=== PATIENT | male | born 1965 | race Caucasian/White ===

== ENCOUNTER 2018-10-06 14:48 | Inpatient (IN) | payer MEDICARE ==
[2018-10-06] VITALS (29 sets, daily range): BP systolic 52–102; BP diastolic 20–82; BMI 34.2
[~2018-10-06] VITALS: Ht 152.4 cm; Wt 74.1 kg
--- NOTE | 2018-10-06 15:00 | NUR ---
DOPAMINE CONTINUES FROM TRANSFER, TITRATE, CURRENT RATE 10 MCG/KG/MIN
[2018-10-06] MEDS ORDERED: KEPPRA500 MG PO (15:02)
[2018-10-06] MEDS ORDERED: ZOLOFT100 MG PO (15:02)
[2018-10-06 16:22] LABS: CKMB 1.7 U/L (0.0-3.6); CREATINE KINASE 61 UL (21-232); PRO BNP 464 pg/mL (0-125); THYROID STIMULATING HORMONE 1.31 uIU/mL (0.36-3.74); TROPONIN-I 0.022 ng/mL (0.000-0.060)
[2018-10-06 16:57] LABS: BASOPHILS 0.7 % (0-2); EOSINOPHILS 0.7 % (0-7); HEMATOCRIT 44.1 % (42.0-54.0); HEMOGLOBIN 15.1 g/dL (13.5-17.5); IMMATURE GRANULOCYTES 0.3 % (0-5); LYMPHOCYTES 14.8 % (15-50); MCH 33.9 pg (26.0-34.0); MCHC 34.2 g/dL (31.0-37.0); MCV 98.9 fL (80.0-100.0); MEAN PLATELET VOLUME 9.4 fL (7.4-10.4); MONOCYTES 7.4 % (2-11); NEUTROPHILS 76.1 % (40-80); PLATELET COUNT 233 10x3/uL (130-400); RBC 4.46 10x6/uL (4.20-6.10); RDW 13.9 % (11.5-14.5); WBC 7.2 10x3/uL (4.8-10.8)
[2018-10-06 17:14] LABS: ALKALINE PHOSPHATASE 67 U/L (46-116); ALT (SGPT) 68 U/L (10-68); BILIRUBIN - TOTAL 0.59 mg/dL (0.2-1.3); CALC OSMOLALITY 284 mosm/kg (275-300); CARBON DIOXIDE 26.5 mmol/L (21.0-32.0); CHLORIDE - SERUM 108 mmol/L (98-107); GLUCOSE 106 mg/dL (74-106); POTASSIUM - SERUM 4.1 mmol/L (3.5-5.1); PROTEIN - SERUM 6.3 g/dL (6.4-8.2); SODIUM 142 mmol/L (136-145); UREA NITROGEN 19 mg/dL (7-18); eGFR NON AFRICAN AMERICAN 84 mL/min (90-120)
--- NOTE | 2018-10-06 18:53 | NUR ---
1628: REC'D TO ROOM CV 8. TRANSFERRED TO ICU BED BY [employer]. CONNECTED TO MONITOR AND VS OBTAINED. IV R AC WITH DOPAMINE @ 3.1 MCG/KG/MIN (10CC/HR) WITH WEIGHT OF 83KG. WEIGHED WITH BEDSCALES @ 75KG. SEE ADMISSION ASSESSMENT. 1730: DOPAMINE INCREASED TO 5 MCG/KG/MIN (14.9 CC/HR). FAMILY AT BEDSIDE. RESTLESS. ATTEMPTS TO CALM UNSUCCESSFUL. FAMILY HOLDING PATIENT DOWN IN BED. 183: FAMILY REQUESTING MEDICATION TO CALM PATIENT 184: Michael RENTERIA APN NOTIFIED OF REQUEST. NEW ORDERS REC'D. 184: 1/2 NS STARTED L HAND AT 100CC/HR. ATIVAN 0.5MG GIVEN IV. 0: CALMER. FAMILY REMAINS AT BEDSIDE.
--- NOTE | 2018-10-06 19:00 | NUR ---
REPORT RECEIVED CARE ASSUMED ASSESSMENT DONE SEE FLOW SHEET. FAMILY AT BEDSIDE QUESTIONS ANSWERED TEACHING PROVIDED. NO SIGNS OF ACUTE DISTRESS. FAMILY MAKING ARRANGEMENTS TO STAY WITH PT THROUGH NIGHT.
--- NOTE | 2018-10-06 20:38 | NUR ---
CASSIE MALDONADO INFORMED OF PT STATUS ORDER RECEIVED. WILL WAIT TO GET URINALYSIS DUE TO PT STATUS.
--- NOTE | 2018-10-06 22:00 | NUR ---
NO SCDS IN PLACE. FAMILY STATES THEY UNDERSTAND THE RISK PT WILL NOT TOLERATE.
[2018-10-06 23:04] LABS: CKMB 2.1 U/L (0.0-3.6); CREATINE KINASE 105 UL (21-232); TROPONIN-I 0.023 ng/mL (0.000-0.060)
[2018-10-07] VITALS (84 sets, daily range): BP systolic 59–138; BP diastolic 25–116
--- NOTE | 2018-10-07 01:00 | NUR ---
2300 REASSESSMENT DONE SEE FLOW SHEET. SINUS EDMOND WITH PVC AND PAC NOTED. LABILE BP NOTED. UNABLE TO OBTAIN ACCURATE BP DUE TO PT MOVEMENT. WILL CONITNUT TO MONITOR. 0100 PT DISLODGED L HAND PIV. L FOREARM PIV 20G PLACED. SALINE LOCK. COMPLETE BED BATH LINEN CHANGE. PT INCONTINENT TO URINE.
--- NOTE | 2018-10-07 03:00 | NUR ---
REASSESSMENT DONE SEE FLOW SHEET VSS.
[2018-10-07 04:16] LABS: BASOPHILS 0.4 % (0-2); EOSINOPHILS 0.6 % (0-7); HEMATOCRIT 46.7 % (42.0-54.0); HEMOGLOBIN 16.5 g/dL (13.5-17.5); IMMATURE GRANULOCYTES 0.2 % (0-5); LYMPHOCYTES 12.2 % (15-50); MCH 34.4 pg (26.0-34.0); MCHC 35.3 g/dL (31.0-37.0); MCV 97.3 fL (80.0-100.0); NEUTROPHILS 77.6 % (40-80); PLATELET COUNT 238 10x3/uL (130-400); RDW 13.5 % (11.5-14.5)
[2018-10-07 04:23] LABS: WBC 11.7 10x3/uL (4.8-10.8)
[2018-10-07 04:42] LABS: ALBUMIN 3.1 g/dL (3.4-5.0); ALKALINE PHOSPHATASE 74 U/L (46-116); ALT (SGPT) 63 U/L (10-68); BILIRUBIN - TOTAL 0.76 mg/dL (0.2-1.3); CALCIUM 8.5 mg/dL (8.5-10.1); CARBON DIOXIDE 31.2 mmol/L (21.0-32.0); CHLORIDE - SERUM 107 mmol/L (98-107); CKMB 1.6 U/L (0.0-3.6); CREATINE KINASE 64 UL (21-232); GLUCOSE 137 mg/dL (74-106); MAGNESIUM - SERUM 1.8 mg/dL (1.8-2.4); PROTEIN - SERUM 6.9 g/dL (6.4-8.2); SODIUM 143 mmol/L (136-145); TROPONIN-I 0.041 ng/mL (0.000-0.060); eGFR NON AFRICAN AMERICAN 84 mL/min (90-120)
[2018-10-07 04:44] LABS: CALC OSMOLALITY 286 mosm/kg (275-300); POTASSIUM - SERUM 3.4 mmol/L (3.5-5.1); UREA NITROGEN 12 mg/dL (7-18)
--- NOTE | 2018-10-07 06:33 | NUR ---
DR BLACKWELL INFORMED OF PT STATUS AND INCONSISTANT BP. " LONG WE HAVE URINE AND MOVEMENT WE ARE OK."
--- NOTE | 2018-10-07 07:00 | NUR ---
REPORT RECEIVED FROM THE OFF GOING RN. SEE ASSESSMENT IN THE PTS FLOW SHEET. PT SITTING IN HIS BED. MOTHER AT HIS BEDSIDE. PT WILL RESPOND WITH "HI" WHENEVER SPOKEN TO BUT PT UNABLE TO ANSWER ANY QUESTIONS. SINUS BRADYCARDIA AT 40-50 BPM. PT ON 1/2NS AND DOPAMINE AT 20MCG/KG/MIN. BP STABLE. O2 AT 2L VIA NC. ASKED THE MOTHER IF THE PT WEARS HOME O2 AND SHE STATED NO. O2 REMOVED AND PT ON RA. PT 92% AND ABOVE. EXPLAINED ABOUT PPM PLACEMENT AND TEACHING ABOUT POST OP DIRECTIONS. PTS MOTHER STATED THAT SHE DOES NOT THINK HE WILL BE ABLE TO KEEP HIS ARM DOWN AND STATED THAT SHE DOES NOT WISH FOR THE PT TO HAVE A PPM. WILL NOTIFY THE [employer] ASSISTANT MANAGER ABOUT THE PTS WISHES.
--- NOTE | 2018-10-07 09:30 | NUR ---
VENTURA LARA TOOLROOM MACHINIST AT THE PTS BEDSIDE TALKING ABOUT SSS AND THE PT NEEDING A PPM. SHE ALSO EXPLAINED THE RISKS AND BENIFITS. SURGERY CONSULTED PER TOOLROOM MACHINIST. FAMILY STATS "WELL HE HAS SEVERE ATROPHY OF THE BRAIN. KEEPING HIS ARM STRAIGHT AND KEEPING HIM CALM WILL BE HARD. WHAT WOULD HAPPEN IF WE DIDNT PUT A PACEMAKER IN HIM?" VENTURA LARA MENTIONED KEEPING HIS ARM RESTRAINED UNTIL OR A CHEMICAL RESTRAINT. SHE ALSO STATED THAT THE PT COULD WITHOUT A PACEMAKER. FAMILY STATED THEY WILL MAKE A DESCISION TOMORROW. DR AGUILAR CONSULTED FOR PPM PLACEMENT.
[2018-10-07 09:58] LABS: CKMB 1.6 U/L (0.0-3.6); CREATINE KINASE 64 UL (21-232); TROPONIN-I 0.048 ng/mL (0.000-0.060)
--- NOTE | 2018-10-07 10:08 | NUR ---
PT INC OF BLADDER. PT CLEANED. FULL CHD BATH GIVEN. LINENES CHANGED WILL CONT POC.
--- NOTE | 2018-10-07 11:24 | NUR ---
YOBANY GUSTAFSON AT THE PTS BEDSIDE DOING SWALLOW EVAL.
--- NOTE | 2018-10-07 11:26 | NUR ---
MECH SOFT AND HONEY THICK FLUIDS RECOMMENDED BY YOBANY GUSTAFSON.
--- NOTE | 2018-10-07 12:59 | NUR ---
PT INC OF BLADDER. PT CLEANED AND LINENES CHANGED. PT TOLERATED WELL.
--- NOTE | 2018-10-07 14:37 | NUR ---
DR ALARCON AT THE PTS BEDSIDE SPEAKING TO THE MOTHER AND THE FATHER ABOUT THE SURGERY (POSSIBLY TOMORROW). NO QUESTIONS AT THIS TIME.
--- NOTE | 2018-10-07 15:54 | NUR ---
DR RIVERO AT THE PTS BEDSIDE.
[2018-10-07 16:36] LABS: HEMATOCRIT 46.2 % (42.0-54.0); HEMOGLOBIN 16.1 g/dL (13.5-17.5); MCHC 34.8 g/dL (31.0-37.0); MCV 97.5 fL (80.0-100.0); MEAN PLATELET VOLUME 9.1 fL (7.4-10.4); RBC 4.74 10x6/uL (4.20-6.10); RDW 13.6 % (11.5-14.5)
[2018-10-07 17:12] LABS: CALC OSMOLALITY 283 mosm/kg (275-300); CALCIUM 9.7 mg/dL (8.5-10.1); CARBON DIOXIDE 29.4 mmol/L (21.0-32.0); CHLORIDE - SERUM 107 mmol/L (98-107); GLUCOSE 97 mg/dL (74-106); SODIUM 143 mmol/L (136-145); UREA NITROGEN 11 mg/dL (7-18); eGFR NON AFRICAN AMERICAN 84 mL/min (90-120)
--- NOTE | 2018-10-07 17:12 | NUR ---
PT INC OF BLADDER. BED LINENS CHANGED AND PT CLEANED.
[2018-10-07 17:13] LABS: INR 1.34 (0.85-1.17); PROTIME 16.1 SECONDS (11.6-15.0)
[2018-10-07 17:14] LABS: APTT 34.4 SECONDS (22.8-39.4); POTASSIUM - SERUM 4.2 mmol/L (3.5-5.1)
--- NOTE | 2018-10-07 20:37 | NUR ---
PT RECEIVED WITH EYES OPEN, FAMILY AT BEDSIDE. PT RESTLESS FREQUENTLY MOVING ARMS WHILE B/P MOVING AND CLINCHING HANDS INTERFERRING WITH SPO2 READING. PT WITH DOWN SYNDROME WITH DEMENTIA. HR BRADYCARDIC, WHEN CALM SPO2 MID 90'S ON ROOM AIR. INCONTINENT OF URINE WITH PERICARE PROVIDED NEW BRIEF APPLIED WITH GOWN AND TOP LINENS, ASSIST GIVEN BY FAMILY, PT RESIST BEING TURNED AT TIMES. NO OTHER NEEDS NOTED. WILL CONTINUE TO OBSERVE.
--- NOTE | 2018-10-07 23:57 | NUR ---
REASSESSMENT COMPLETED, SEE FLOW SHEET. INCONTENT OF URINE, PERICARE PROVIDED AND NEW BRIEF ON. WILL CONTINUE TO OBSERVE.
[2018-10-08] VITALS (69 sets, daily range): BP systolic 50–133; BP diastolic 18–111
--- NOTE | 2018-10-08 02:36 | NUR ---
PT RESTING WITH EYES CLOSED AND CHEST RISING. NO S/S OF DISTESS. CALL LIGHT IN REACH. WILL CONTINUE TO OBSERVE.
--- NOTE | 2018-10-08 02:38 | NUR ---
PT WITH EYES OPEN CLINCHING HANDS AND MOVING ARMS DURING BLOOD PRESSURE AT TIMES CAUSING MISSREADINGS, PT ASSESSED AND BP WITH NORMAL RANGE AND SPO2. WILL CONTINUE TO OBSERVE.
[2018-10-08 04:32] LABS: BASOPHILS 0.5 % (0-2); EOSINOPHILS 0.9 % (0-7); HEMATOCRIT 44.6 % (42.0-54.0); HEMOGLOBIN 15.5 g/dL (13.5-17.5); IMMATURE GRANULOCYTES 0.1 % (0-5); LYMPHOCYTES 12.1 % (15-50); MCH 33.6 pg (26.0-34.0); MCHC 34.8 g/dL (31.0-37.0); MCV 96.7 fL (80.0-100.0); MEAN PLATELET VOLUME 9.2 fL (7.4-10.4); NEUTROPHILS 76.4 % (40-80); PLATELET COUNT 223 10x3/uL (130-400); RBC 4.61 10x6/uL (4.20-6.10); RDW 13.5 % (11.5-14.5); WBC 9.2 10x3/uL (4.8-10.8)
[2018-10-08 04:41] LABS: ALKALINE PHOSPHATASE 71 U/L (46-116); ALT (SGPT) 40 U/L (10-68); BILIRUBIN - TOTAL 1.01 mg/dL (0.2-1.3); CALC OSMOLALITY 274 mosm/kg (275-300); CALCIUM 7.9 mg/dL (8.5-10.1); CARBON DIOXIDE 25.9 mmol/L (21.0-32.0); CHLORIDE - SERUM 105 mmol/L (98-107); GLUCOSE 144 mg/dL (74-106); MAGNESIUM - SERUM 1.5 mg/dL (1.8-2.4); POTASSIUM - SERUM 3.4 mmol/L (3.5-5.1); PROTEIN - SERUM 6.2 g/dL (6.4-8.2); SODIUM 137 mmol/L (136-145); UREA NITROGEN 8 mg/dL (7-18); eGFR NON AFRICAN AMERICAN 84 mL/min (90-120)
[2018-10-08 04:42] LABS: ALBUMIN 2.6 g/dL (3.4-5.0)
--- NOTE | 2018-10-08 06:35 | NUR ---
CHEST CLIPPED, CHG BATH GIVEN, TOLERATED WELL. COMPLETE LINEN CHANGE PROVIDED WITH EPISODE OF URINARY INCONTINENCE NOTED WITH PERICARE PROVIDED. TREATING POTASSIUM AND MAG PER ELECTROLYTE PROTOCOL. WILL CONTINUE TO OBSERVE.
--- NOTE | 2018-10-08 07:00 | NUR ---
RECEIVED REPORT ON PATIENT AND ASSUMED CARE. PATIENT AWAKE, NO ANSWERING QUESTIONS, NOT FOLLOWING COMMANDS, HR 52 - SB, RR -12, BBS CLEAR AND EQUAL, SPO2 - 95%, IVS INFUSING DOPAMINE TO L FA 20 IV WITH NO S/S OF INFILTRATION, AT 20 MCG/KG/MIN 59.6 CC/HR. 1/2 NS AT 100 CC/HR, KCL AND MAGNESIUM TO R AC 20 GA WITH S/S OF INFILTRATION. HEAD TO TOE ASSESSMENT COMPLETED.
--- NOTE | 2018-10-08 08:35 | NUR ---
2ND BAG (2/2) OF MAGNESIUM (1 GRAM) STARTED INFUSING (MAG 1.5 THIS AM), 3RD BAG OF KCL 10 MEQ (3/4) STARTED INFUSING (K 3.4 THIS AM).
--- NOTE | 2018-10-08 08:45 | NUR ---
VENTURA LARA APN AT BEDSIDE.
--- NOTE | 2018-10-08 09:24 | NUR ---
PATIENT SPO2% DROPPING TO 80S DURING SLEEP, PLACED ON 2 LPM VIA NC. ORAL CARE PERFORMED.
--- NOTE | 2018-10-08 09:31 | NUR ---
4TH 4/4 BAG OF KCL 10 MEQ STARTED INFUSING.
--- NOTE | 2018-10-08 09:43 | NUR ---
PATIENT INCONTINENT OF URINE, CLEANED AND LINENS CHANGED.
--- NOTE | 2018-10-08 10:23 | NUR ---
SPOKE TO DR. GENAO REGARDING PATIENTS BP BEING 66 SYSTOLIC, ADVISED TO GIVE A 500CC ML BOLUS OF NS. ALSO, PATIENT IS ON KEPPRA 500 MG BID AT HOME FOR SIEZURES BUT HAS NOT HAD ANY SINCE ADMIT TO HOSPITAL. TO GIVE 1,000 MG ONE TIME DOSE OF KEPPRA ONCE BP STABLE. ORDERS PLACED.
--- NOTE | 2018-10-08 10:54 | NUR ---
NS BOLUS 500 CC COMPLETED. BP - 126/49, HR 58, KEPPRA 1,000 MG STARTED INFUSING.
--- NOTE | 2018-10-08 11:00 | NUR ---
REASSESSMENT COMPLETE. VSS. KEPPRA INFUSION COMPLETE.
--- NOTE | 2018-10-08 11:50 | NUR ---
DR. GENAO AT ROOM UPDATED ON PATIENT AND ANSWERS PATIENTS MOTHERS QUESTIONS.
--- NOTE | 2018-10-08 13:02 | NUR ---
SPOKE TO DR. GENAO REGARDING PATIENTS BP 50/18, STATES TO GIVE ANOTHER 500 CC NS BOLUS.
--- NOTE | 2018-10-08 13:37 | NUR ---
SPOKE TO DR. GENAO REGARDING PATIENTS BP AFTER 2ND BOLUS 89 SYSTOLIC. ORDERS UPDRAFT BY RT ALBUTEROL. CARDIOLOGY ALSO PAGED.
--- NOTE | 2018-10-08 13:43 | NUR ---
DR. DELGADILLO AT UNIT UPDATED ON PATIENT CONDITION, STATES WAIT AND SEE IF ALBUTERLOL STIMULATES HR AND THUS INCREASES BP PRIOR TO GIVING ANY MORE FLUID.
--- NOTE | 2018-10-08 14:07 | NUR ---
SPOKE TO DR. ANDRES REGARDING PATIENTS CONDITION, BP 86/43 (58) AND TREATMENT TO THIS TIME AND RESPONSES. NO ORDERS RECEIVED, STATES HE WILL DISCUSS WITH ANESTHISIA.
--- NOTE | 2018-10-08 14:38 | NUR ---
SPOKE TO OSMAN NURSE WITH DR. AGUILAR, ADVISED THAT SURGERY ON HOLD UNTIL PATIENT MORE STABLE. ORDER PLACED FOR PICC INSERTION, CONSENT OBTAINED FROM MOTHER.
--- NOTE | 2018-10-08 14:48 | NUR ---
ORAL CARE COMPLETED ON PATIENT.
--- NOTE | 2018-10-08 15:03 | NUR ---
REASSESSMENT COMPLETED. VASCULAR ACCESS NURSE AT BEDSIDE FOR PICC LINE INSERTION. EXPLAINED PROCEDURE AND ANSWERED QUESTIONS FROM FAMILY.
[2018-10-08 18:04] LABS: APPEARANCE CLEAR (CLEAR); BILIRUBIN NEGATIVE (NEGATIVE); COLOR YELLOW (YELLOW); GLUCOSE NEGATIVE (NEGATIVE); KETONE NEGATIVE (NEGATIVE); NITRITE NEGATIVE (NEGATIVE); PROTEIN NEGATIVE (NEGATIVE); RED CELLS - URINE 0-5 /hpf (0-5); SPECIFIC GRAVITY 1.015 (1.005-1.020); UROBILINOGEN NORMAL (NORMAL); WAXY CAST 0-5 /lpf (NONE SEEN)
--- NOTE | 2018-10-08 19:00 | NUR ---
REPORT RECEIVED, SHIFT ASSESSMENT COMPLETE PER FLOW SHEET, PT AWAKE AND CONFUSED UNABLE TO ANSWER QUESTIONS NON-VERBAL, PT MOTHER AND FATHER AT BEDSIDE ASSISTS WITH NEEDS, RT IJ CVL INFUSING MEDS SEE MAR/ORDERS, CURRENTLY ON DOPAMINE AND LEVOPHED GTT SEE FLOW SHEET, LABILE B/P ON CM PT RESTLESS AND MOVES EXTREMITIES WHEN B/P CUFF INFLATES, NSR ON CM, PATEL CATH IN PLACE WITH CLEAR YELLOW VOID NOTED, WILL CONTINUE TO MONITOR
--- NOTE | 2018-10-08 22:30 | NUR ---
PT PULLING GOWN AND SHEETS OFF BED, ATTEMPTS TO CALM PT NOT SUCCESSFUL, MOTHER AT BEDSIDE, MED GIVEN PER MAR/ORDERS, VSS, WILL CONTINUE TO MONITOR
--- NOTE | 2018-10-08 23:00 | NUR ---
REASSESSMENT COMPLETE PER FLOW SHEET, PT MOTHER AT BEDSIDE, REPOSITIONED PT UP IN BED, DIFFICULT TO GET B/P ON PT FROM INCREASED MOVEMENT, OTHER VSS, WILL CONTINUE TO MONITOR
[2018-10-09] VITALS (58 sets, daily range): BP systolic 71–118; BP diastolic 35–90
[2018-10-09 06:24] LABS: ALBUMIN 2.3 g/dL (3.4-5.0); ALKALINE PHOSPHATASE 62 U/L (46-116); ALT (SGPT) 25 U/L (10-68); BILIRUBIN - TOTAL 0.93 mg/dL (0.2-1.3); CALC OSMOLALITY 287 mosm/kg (275-300); CALCIUM 7.9 mg/dL (8.5-10.1); CARBON DIOXIDE 24.2 mmol/L (21.0-32.0); CHLORIDE - SERUM 112 mmol/L (98-107); CREATININE - SERUM 0.9 mg/dL (0.6-1.3); GLUCOSE 118 mg/dL (74-106); MAGNESIUM - SERUM 1.7 mg/dL (1.8-2.4); POTASSIUM - SERUM 3.6 mmol/L (3.5-5.1); PROTEIN - SERUM 5.7 g/dL (6.4-8.2); SODIUM 145 mmol/L (136-145); UREA NITROGEN 7 mg/dL (7-18); eGFR NON AFRICAN AMERICAN > 90 mL/min (90-120)
[2018-10-09 06:25] LABS: BASOPHILS 0.6 % (0-2); EOSINOPHILS 2.3 % (0-7); HEMATOCRIT 40.6 % (42.0-54.0); HEMOGLOBIN 14.1 g/dL (13.5-17.5); IMMATURE GRANULOCYTES 0.2 % (0-5); LYMPHOCYTES 12.1 % (15-50); MCH 33.7 pg (26.0-34.0); MCHC 34.7 g/dL (31.0-37.0); MCV 96.9 fL (80.0-100.0); MONOCYTES 11.2 % (2-11); NEUTROPHILS 73.6 % (40-80); PLATELET COUNT 220 10x3/uL (130-400); RBC 4.19 10x6/uL (4.20-6.10); RDW 13.8 % (11.5-14.5)
--- NOTE | 2018-10-09 07:00 | NUR ---
RECIEVED BEDSIDE REPORT AND ASSUMED CARE OF PATIENT. LEVOPHED INFUSING AT 8 MCG/MIN, DOPAMINE AT 7 MCG/KG/MIN AND NS AT 100 CC/HR. MAGNESIUM 2 GM ALSO INFUSING TO CENTRAL LINE TO R IJ. FATHER AT BEDSIDE. HEAD TO TOE ASSESSMENT COMPLETED.
--- NOTE | 2018-10-09 08:29 | NUR ---
SPOKE TO DR. SANDERS REGARDING CONSULT. REQUESTS LACTIC ACID, CVP MONITORING AND CXR.
--- NOTE | 2018-10-09 09:07 | NUR ---
XR AT ROOM FOR CXR.
--- NOTE | 2018-10-09 09:28 | NUR ---
CVP SET UP AND ZEROED, CVP 3.
--- NOTE | 2018-10-09 09:30 | NUR ---
NOTIFIED DR. SANDERS OF ABG RESULTS AND LACTIC ACID, ALSO OF CVP BEING 3. ADVISED TO GIVE 1 L NS AT 200 CC/HR THEN DECREASE THE RATE TO 150 CC/HR CONTINOUS.
--- NOTE | 2018-10-09 10:53 | NUR ---
DR. GENAO AT ROOM UPDATED AND EXAMINES PATIENT. NO NEW ORDERS.
--- NOTE | 2018-10-09 11:02 | NUR ---
REASSESSMENT COMPLETE. GIVEN PREOP MEDS PER MAR. GIVEN CHG BATH. PARENTS AT BEDSIDE UPDATED AND QUESTIONS ANSWERED.
--- NOTE | 2018-10-09 13:00 | NUR ---
PATIENT RESTING QUIETLY, PARENTS AT BEDSIDE.
--- NOTE | 2018-10-09 14:35 | NUR ---
PATIENT TO OR VIA BED.
--- NOTE | 2018-10-09 16:10 | NUR ---
PATIENT RECEIVED BACK FROM PACU POST PPM PLACEMENT. LEFT ARM IN SLING. L UPPER CHEST WITH DRESSING CLEAN DRY AND INTACT. BP 87/59 (59), SPO2 100%, CM - 60 PACED.
--- NOTE | 2018-10-09 17:30 | NUR ---
PATIENT RESTING QUIETLY. MOTHER AT BEDSIDE. ORAL CARE PERFORMED.
--- NOTE | 2018-10-09 17:57 | NUR ---
CONTACTED [facility] REGARDING NEW PACEMAKER PLACEMENT AND NEED FOR REP TO INTEROGATE PM IN AM.
--- NOTE | 2018-10-09 19:23 | NUR ---
CONTACTED DR. AGUILAR CONCERNING PATIENTS DUAL PACEMAKER, HAVING SPIKES WITHIN THE QRS COMPLEX, POSSIBLY NOT SENSING CORRECTLY. ADVISED TO HAVE [facility] TO COME EVALUATE/INTEROGATE THE PACEMAKER TONIGHT. [facility] CONTACTED AND ADVISED.
--- NOTE | 2018-10-09 20:45 | NUR ---
[facility] STAFF HERE TO EVALUATE PATIENT PACEMAKER PER DR. AGUILAR. DR. AGUILAR WAS NOTIFIED PER [employer] STAFF OF PACEMAKER EVALUATION.
--- NOTE | 2018-10-09 21:30 | NUR ---
FAMILY AT BEDSIDE, UPDATE PROVIDED AND QUESTIONS ANSWERED. PT REPOSITIONED IN BED, PARTIAL LINEN CHANGE PROVIDED. ORAL CARE PROVIDED AT THIS TIME. SLING IN PLACE, LT CHEST DRSG INTACT. PT REMAINS CONFUSED AND UNABLE TO FOLLOW COMMANDS. FATHER REMAINS AT BEDSIDE. CPOC.
--- NOTE | 2018-10-09 23:30 | NUR ---
REASSESSMENT COMPLETE, NO NEW CHANGES AT THIS TIME. PT REPOSITIONED IN BED, ORAL CARE PROVIDED. REMAINS CONFUSED, UNABLE TO FOLLOW COMMANDS. FATHER AT BEDSIDE. LT ARM IN SLING, LT CHEST DRESSING INTACT.
[2018-10-10] VITALS (91 sets, daily range): BP systolic 73–115; BP diastolic 30–581; Ht 152.4 cm; Wt 74.1 kg
--- NOTE | 2018-10-10 03:30 | NUR ---
REASSESSMENT COMPLETE, NO NEW CHANGES AT THIS TIME. PT REPOSITIONED IN BED. VSS, PT FATHER AT BEDSIDE. CPOC.
[2018-10-10 05:58] LABS: BASOPHILS 0.6 % (0-2); EOSINOPHILS 2.2 % (0-7); HEMATOCRIT 41.8 % (42.0-54.0); HEMOGLOBIN 14.7 g/dL (13.5-17.5); IMMATURE GRANULOCYTES 0.3 % (0-5); LYMPHOCYTES 9.4 % (15-50); MCH 33.9 pg (26.0-34.0); MCHC 35.2 g/dL (31.0-37.0); MCV 96.3 fL (80.0-100.0); MEAN PLATELET VOLUME 9.2 fL (7.4-10.4); MONOCYTES 8.3 % (2-11); NEUTROPHILS 79.2 % (40-80); PLATELET COUNT 197 10x3/uL (130-400); RBC 4.34 10x6/uL (4.20-6.10); RDW 13.7 % (11.5-14.5); WBC 11.5 10x3/uL (4.8-10.8)
[2018-10-10 06:18] LABS: ALBUMIN 2.3 g/dL (3.4-5.0); ALKALINE PHOSPHATASE 65 U/L (46-116); ALT (SGPT) 27 U/L (10-68); BILIRUBIN - TOTAL 0.59 mg/dL (0.2-1.3); CALC OSMOLALITY 282 mosm/kg (275-300); CALCIUM 7.4 mg/dL (8.5-10.1); CARBON DIOXIDE 25.5 mmol/L (21.0-32.0); CHLORIDE - SERUM 109 mmol/L (98-107); CREATININE - SERUM 0.8 mg/dL (0.6-1.3); GLUCOSE 111 mg/dL (74-106); MAGNESIUM - SERUM 1.8 mg/dL (1.8-2.4); PHOSPHOROUS 2.3 mg/dL (2.5-4.9); POTASSIUM - SERUM 3.7 mmol/L (3.5-5.1); PROTEIN - SERUM 5.1 g/dL (6.4-8.2); SODIUM 143 mmol/L (136-145); eGFR NON AFRICAN AMERICAN > 90 mL/min (90-120)
[2018-10-10 06:23] LABS: UREA NITROGEN 5 mg/dL (7-18)
--- NOTE | 2018-10-10 06:48 | NUR ---
PT REPOSITIONED IN BED, PARTIAL LINEN CHANGE. ORAL CARE PROVIDED. FATHER AT BEDSIDE. VSS.
--- NOTE | 2018-10-10 07:00 | NUR ---
REPORT RECEIVED FROM THE OFF GOING RN. SEE ASSESSMENT IN THE PTS FLOW SHEET. PT LYING IN BED. PT NON VERBAL AND DOES NOT FOLLOW COMMANDS. HX OF DOWNSYNDROM AND DEMENITA. LEFT UPPER CHEST DRESSING C/D/I. LEFT UPPER ARM IN A SLING. RIGHT IJ DRESSING C/D/I. SEE FLOW SHEET FOR GTTS. ORAL CARE PROVIDED FOR THE PT. FC NOTED WITH CLEAR, RED TINGED URINE. VENTRICULARLY PACED ON THE MONITOR. WAS NOTIFIED THAT THE PT IS VVI RATE OF 80 PER [facility] TECH. FATHER AT THE PTS BEDISDE. CALL LIGHT IN REACH. WILL CONT POC.
--- NOTE | 2018-10-10 08:00 | NUR ---
[facility] TECH AT THE PTS BEDSIDE.
--- NOTE | 2018-10-10 08:56 | NUR ---
DR WAY IN THE UNIT. ORDERS TO DECREASED DOPAMINE TO 2.5MCG/KG/MIN. KEEP SBP ABOUT 80.
--- NOTE | 2018-10-10 11:30 | NUR ---
DR GENAO AT THE PTS BEDSIDE.
--- NOTE | 2018-10-10 15:27 | NUR ---
REASSESSMENT COMPLETED. SEE FLOW SHEET. VSS. DENIES PAIN/NEEDS. WILL CONT POC.
--- NOTE | 2018-10-10 16:30 | NUR ---
DR AGUILAR AT THE PTS BEDSIDE.
--- NOTE | 2018-10-10 19:00 | NUR ---
REPORT RECIEVED FROM OFFGOING NURSE, NO CHANGES IN CONDTITION FROM PREVIOUS REPORT AND PHYSICIAN AWARE. DOES NOT FOLLOW COMMANDS AND IS CONFUSED, RESPONDS TO PANIFUL STIMULI. LEFT UPPER ARM IN SLING, LEFT UPPER CHEST INCISION SITE, DRESSING CDI. RIGHT IJ DRESSING CDI, SEE IV FLOWSHEET FOR GTT. VENTRICULARLY PACED, PATEL IN PLACE WITH RED-TINGED URINE, MOTHER AT BEDSIDE CURRENTLY. CALL LIGHT IN REACH, WILL CONTINUE TO MONITOR.
--- NOTE | 2018-10-10 20:07 | MORECARE ---
CASE MANAGEMENT DISCHARGE SUMMARY PATIENT: TIARRA PENALOZA UNIT: [id number] ADM DATE: 10/06/18 AGE: 53 : [birth year] SEX: M [facility] AUTHOR: MERCED EPPS PHYSICIAN: REFERRING PHYSICIAN: HOLLIS RAGSDALE MD DATE OF SERVICE: 10/10/18 Discharge Plan Patient Name: TIARRA PENALOZA Facility: [facility]:[place] : 1965 Planned Disposition: Home Anticipated Discharge Date: Discharge Date: Expected LOS: Initial Reviewer: [email or web address] Initial Review Date: 10/09/2018 Generated: 10/10/18 9:06 pm Patient Name: TIARRA PENALOZA Page [phone] at 2006 All edits/amendments must be made on the electronic document DICTATION DATE: 10/10/182005 [employer]ATION DRILL OPERATOR: ROD 10/10/182005 RPT#: [id number] DC DATE: STATUS: ADM IN [facility] [address] [place] [address] END OF REPORT
--- NOTE | 2018-10-10 20:14 | MORECARE ---
CASE MANAGEMENT DISCHARGE SUMMARY PATIENT: TIARRA PENALOZA UNIT: [id number] ADM DATE: 10/06/18 AGE: 53 : 69 SEX: M ROOM/BED: D[facility] AUTHOR: MICHDOC PHYSICIAN: REFERRING PHYSICIAN: HOLLIS RAGSDALE MD DATE OF SERVICE: 10/10/18 Discharge Plan Patient Name: TIARRA PENALOZA Facility: [facility]:[place] : 1965 Planned Disposition: Home Anticipated Discharge Date: Discharge Date: Expected LOS: Initial Reviewer: [email or web address] Initial Review Date: 10/09/2018 Generated: 10/10/18 9:14 pm Comments DCP- Discharge Planning Updated by [email or web address]: Jaci Metzger on 10/10/18 7:[address] Patient Name: TIARRA PENALOZA Admission Status: ER Accout number: [id number] Admission Date: 10-06-2018 : 1965 Admission Diagnosis:BRADYCARDIA, UNSPECIFIED Attending: HOLLIS RAGSDALE Current LOS: 4 Anticipated DC Date: Planned Disposition: Home Primary Insurance: MEDICARE A & B Discharge Planning Comments: CM met with patient and mother at bedside after explaining CM role and obtaining verbal consent. Patient lives at home with his parents and plans to return there upon discharge. Patient has Down's and Alzheimer's he is non-verbal. His mother feels this would be a safe discharge. CM discussed availability / needs of home health and medical equipment. Family denies any discharge needs at this time. CM will continue to follow and assist as needed with discharge planning / needs. Engineer Sergeant: Jaci Metzger DCPIA - Discharge Planning Initial Assessment Updated by [email or web address]: Jaci Metzger on 10/10/18 8:07 pm * Is the patient Alert and Oriented? No * How many steps to enter\exit or inside your home? * PCP SHAHID PENALOZA * Pharmacy [facility] * Preadmission Environment Home with Family * ADLs Total Dependent * Other Equipment W/C, HOSPITAL BED, STEP IN TUB, * List name and contact numbers for known caregivers / representatives who currently or will assist patient after discharge: BERNARDO PENALOZA - FATHER- [phone] * Verbal permission to speak to the caregivers and representatives has been obtained from the patient. N/A * Community resources currently utilized None * Additional services required to return to the preadmission environment? No * Can the patient safely return to the preadmission environment? Yes * Has this patient been hospitalized within the prior 30 days at any hospital? No Last DP export: 10/10/18 7:07 p Patient Name: TIARRA PENALOZA Page [phone] at 2013 All edits/amendments must be made on the electronic document DICTATION DATE: 10/10/182013 [employer] ARTILLERY: ROD 10/10/182013 RPT#: [id number] DC DATE: STATUS: ADM IN [facility] [address] [place] [address] END OF REPORT
--- NOTE | 2018-10-10 21:00 | NUR ---
PT REPOSITIONED, PM MEDS GIVEN, NO CHANGE IN CONDITION. WILL CONTINUE TO MONITOR.
--- NOTE | 2018-10-10 23:00 | NUR ---
PT REPOSITIONED, FATHER IN ROOM, CALL LIGHT IN REACH, PARTIAL LINEN CHANGE. WILL CONTINUE TO MONITOR.
[2018-10-11] VITALS (85 sets, daily range): BP systolic 46–124; BP diastolic 19–70
--- NOTE | 2018-10-11 01:00 | NUR ---
ORAL CARE PROVIDED WITH ASSISTANCE FROM FAMILY MEMBER, PT READJUSTED IN BED, NO SIGNS OF ACUTE DISTRESS. WILL CONTINUE TO MONITOR.
--- NOTE | 2018-10-11 03:15 | NUR ---
CHG BATH GIVEN, FULL LINEN CHANGE, PT REPOSITIONED. REASSESSMENT COMPLETED, SEE FLOWSHEET. FAMILY MEMBER AT BEDSIDE, CALL LIGHT IN REACH, WILL CONTINUE TO MONITOR.
[2018-10-11 04:31] LABS: BASOPHILS 0.7 % (0-2); EOSINOPHILS 2.4 % (0-7); HEMATOCRIT 40.5 % (42.0-54.0); HEMOGLOBIN 14.1 g/dL (13.5-17.5); IMMATURE GRANULOCYTES 0.2 % (0-5); LYMPHOCYTES 10.7 % (15-50); MCH 33.8 pg (26.0-34.0); MCHC 34.8 g/dL (31.0-37.0); MCV 97.1 fL (80.0-100.0); MEAN PLATELET VOLUME 9.1 fL (7.4-10.4); MONOCYTES 9.5 % (2-11); NEUTROPHILS 76.5 % (40-80); PLATELET COUNT 185 10x3/uL (130-400); RBC 4.17 10x6/uL (4.20-6.10); RDW 13.5 % (11.5-14.5); WBC 10.2 10x3/uL (4.8-10.8)
[2018-10-11 04:42] LABS: ALKALINE PHOSPHATASE 57 U/L (46-116); BILIRUBIN - TOTAL 0.57 mg/dL (0.2-1.3); CALCIUM 7.6 mg/dL (8.5-10.1); CARBON DIOXIDE 26.9 mmol/L (21.0-32.0); CHLORIDE - SERUM 110 mmol/L (98-107); CREATININE - SERUM 0.7 mg/dL (0.6-1.3); GLUCOSE 108 mg/dL (74-106); MAGNESIUM - SERUM 1.9 mg/dL (1.8-2.4); POTASSIUM - SERUM 3.6 mmol/L (3.5-5.1); PROTEIN - SERUM 5.3 g/dL (6.4-8.2); SODIUM 143 mmol/L (136-145); eGFR NON AFRICAN AMERICAN > 90 mL/min (90-120)
[2018-10-11 04:46] LABS: ALT (SGPT) 15 U/L (10-68); CALC OSMOLALITY 283 mosm/kg (275-300); UREA NITROGEN 8 mg/dL (7-18)
--- NOTE | 2018-10-11 05:00 | NUR ---
PT AGITATED WITH STIMULI, NO OTHER CHANGES FROM PREVIOUS STATUS. FAMILY MEMBER AT BEDSIDE, CALL LIGHT IN REACH.
--- NOTE | 2018-10-11 07:46 | NUR ---
MELIDA WITH [employer] HERE THIS AM FOR PM INTERROGATION. PT RESTING COMFORTABLY. VSS. HR 80 WITH PACED BEATS. DOAMINE TITRATED TO OFF AT 0739.
--- NOTE | 2018-10-11 08:42 | NUR ---
MOUTH CARE DONE. PT REPOSITIONED. FAMILY AT BS. SBP 90 WITH DOPAMINE OFF. LEVOPHED AT 6MCG/MIN.
--- NOTE | 2018-10-11 08:58 | NUR ---
DOPAMINE TITRATED TO 2.5MCG/KG/MIN. SBP 69.
--- NOTE | 2018-10-11 10:38 | NUR ---
PT MORE AWAKE AND ALERT. PARENTS AT BS.
--- NOTE | 2018-10-11 10:49 | NUR ---
DR WAY HERE. DR WAY SPOKE TO FAMILY AT BS. BP 100/78. LEVOPHED DECREASED TO 6MCG/MIN.
--- NOTE | 2018-10-11 12:31 | NUR ---
Nutrition Follow-up: Noted diet advanced to regular mechanical soft with honey thick liquids; Procalamine currently ordered at 75 mL/hr (provides 441 kcal, 54 g protein). Wt: 163# Last BM: 10/07 per chart Labs reviewed Meds reviewed Rec d/c Procalamine if pt tolerating PO intake. [place] food preferences within diet restrictions. RD following.
--- NOTE | 2018-10-11 15:57 | NUR ---
PT AGGITATED. ATIVAN GIVEN.
--- NOTE | 2018-10-11 19:00 | NUR ---
REPORT REC'D, PT CARE ASSUMED. ASSESSMENT COMPLETED. SEE FLOWSHEETS FOR ALL FINDINGS. PT AWAKE, RESTLESS IN BED, DOES NOT FOLLOWS COMMAND, GET MORE AGITATED WITH STIMULATION. LEFT ARM IN SLING, VENTRICULAR PACED ON CM WITH HR AT84 BPM, PPP. FATHER AT BEDSIDE. CALL LIGHT IN REACH .CONT TO MONITOR.
--- NOTE | 2018-10-11 21:00 | NUR ---
REPOSITIONED PT IN BED FOR COMFORT. BP CUFF REPOSITIONED DUE TO PT MOVING CONSTANTLY OF LEG. CONT LEVOPHED TO KEEP SBP> 90S. FAMILY AT BEDSIDE. CPOC.
--- NOTE | 2018-10-11 23:00 | NUR ---
REASSESSMENT COMPLETED PER FLOWSHEETS. PT CONST MOVING IN BED, NO SIGNS OF DISTRESS NOTED. CONT TO MONITOR.
[2018-10-12] VITALS (48 sets, daily range): BP systolic 61–123; BP diastolic 29–84
--- NOTE | 2018-10-12 01:00 | NUR ---
PT RESTING WITHOUT ANY DISTRESS AT THIS TIME. PACED ON MONITOR. VSS. CPOC
--- NOTE | 2018-10-12 05:00 | NUR ---
I&O COMPLETED TO CHART
--- NOTE | 2018-10-12 07:42 | NUR ---
PT RESTING QUIETLY, VSS, NO PRESSORS INFUSING AT PRESENT TIME. VSS. FATHER AT BS.
--- NOTE | 2018-10-12 12:13 | NUR ---
PT INC OF BOWEL, HEBICLENZ BATH DONE WITH LINENS CHANGED.
--- NOTE | 2018-10-12 13:28 | NUR ---
DR AGUILAR HERE ON ROUNDS.
--- NOTE | 2018-10-12 17:57 | NUR ---
PT AWAKENS EASILY. FAMILY AT BS. VSS.
--- NOTE | 2018-10-12 19:00 | NUR ---
REPORT RECEIVED. RECEIVED PATIENT IN BED, RESTING WITH EYES CLOSED. EASILY ROUSED AND ALERT. NONVERBAL. MONITORS CONNECTED TO PATIENT WITH ALARMS SET. VSS. SHIFT ASSESSMENT COMPLETED PER FLOW SHEET WITH NO ACUTE DISTRESS OBSERVED. MOM AT BEDSIDE.
--- NOTE | 2018-10-12 21:00 | NUR ---
AWAKE AND ALERT. SMILES EASILY. PM MEDS TAKEN WITHOUT DIFF WITH A FEW BITES OF APPLESAUCE.
--- NOTE | 2018-10-12 23:00 | NUR ---
AWAKE AND ALERT. LAUGHING. VSS. REASSESSMENT COMPLETED PER FLOW SHEET WITH NO ACUTE DISTRESS OBSERVED. MOM AT BEDSIDE
[2018-10-13] VITALS (22 sets, daily range): BP systolic 73–117; BP diastolic 36–73
--- NOTE | 2018-10-13 01:00 | NUR ---
RESTING WITH EYES CLOSED, EASILY ROUSED AND ALERT. VSS
--- NOTE | 2018-10-13 03:00 | NUR ---
RESTING WITH EYES CLOSED, DOMINIQUE STONE
--- NOTE | 2018-10-13 05:00 | NUR ---
AWAKE AND ALERT. LAUGHING. VSS. MOM AT BEDSIDE. ORAL CARE PERFORMED.
[2018-10-13 06:17] LABS: BASOPHILS 0.3 % (0-2); EOSINOPHILS 0.1 % (0-7); HEMATOCRIT 40.9 % (42.0-54.0); HEMOGLOBIN 14.1 g/dL (13.5-17.5); IMMATURE GRANULOCYTES 0.4 % (0-5); MCH 33.7 pg (26.0-34.0); MCHC 34.5 g/dL (31.0-37.0); MCV 97.8 fL (80.0-100.0); MEAN PLATELET VOLUME 9.7 fL (7.4-10.4); NEUTROPHILS 85.2 % (40-80); PLATELET COUNT 171 10x3/uL (130-400); RBC 4.18 10x6/uL (4.20-6.10); RDW 13.7 % (11.5-14.5); WBC 7.5 10x3/uL (4.8-10.8)
[2018-10-13 06:44] LABS: CALC OSMOLALITY 280 mosm/kg (275-300); CALCIUM 7.9 mg/dL (8.5-10.1); CARBON DIOXIDE 27.7 mmol/L (21.0-32.0); CHLORIDE - SERUM 107 mmol/L (98-107); CREATININE - SERUM 0.6 mg/dL (0.6-1.3); GLUCOSE 115 mg/dL (74-106); MAGNESIUM - SERUM 2.1 mg/dL (1.8-2.4); POTASSIUM - SERUM 3.9 mmol/L (3.5-5.1); SODIUM 141 mmol/L (136-145); UREA NITROGEN 9 mg/dL (7-18); eGFR NON AFRICAN AMERICAN > 90 mL/min (90-120)
--- NOTE | 2018-10-13 07:35 | NUR ---
PT SITTING UPRIGHT IN BED AND IS LAUGHING. HIS MOTHER IS FEEDING HIM. PT TAKING IN FOOD WITH OUT PROBLEMS.
--- NOTE | 2018-10-13 09:24 | EC ---
PATIENT:TIARRA PENALOZA DATE OF SERVICE: 10/06/18 SEX: M MEDICAL RECORD: [id number] DATE OF : [birth year] LOCATION:[place] [address] AGE OF PATIENT: 53 ADMISSION DATE: 10/06/18 REFERRING PHYSICIAN: INTERPRETING PHYSICIAN: MAGY BLACKWELL MD ECHOCARDIOGRAM REPORT ECHO CHARGES 4 ECHO COMPLETE Date: 10/07/18 CLINICAL DIAGNOSIS: CHF ECHOCARDIOGRAPHIC MEASUREMENTS (adult normal given) AC root (d.<3.7cm) 3.2 cm LV Septum d (<1.2 cm> 1.1 cm Valve Excursion 2.0 cm LV Septum (systole) 1.4 cm Left Atria (s.<4.0cm> 3.0 cm LVPW d(<1.2cm) 0.9 cm RV (d.<2.3cm) 2.6 cm LVPW (sytole) 1.5 cm LV diastole(<5.6CM) 4.9 cm MV E-F(>70mm/sec) cm LV systole 2.5 cm LVOT Diameter 1.8 cm MV exc.(>10mm) cm Est.ejection fraction (50-75%) % DOPPLER: LVIT cm/sec A 62.0 cm/sec E 79.0 cm/sec LA cm/sec RVSP 30.4 mmHg LVOT 144 cm/sec AOP1/2T m/s Asc. Ao 160 cm/sec RVOT 108 cm/sec RA cm/sec PA 129 cm/sec AV Gradient Peak 10.3 mmHg AV Mean 4.8 mmHg AV Area 1.5 cm MV Gradient Peak 4.0 mmHg MV Mean 1.1 mmHg MV Area cm COMMENTS: Cylinder Block Hole Reliner: 1 ALEXIS CONTRERASOE Painter Touch Up: 3 Dr. Gaviria TAPE# PACS Pericardial Effusion N DATE OF SERVICE: Adequate 2D, color flow, spectral Doppler, and M-mode. No LVH. LV internal dimensions are normal. LV appears to be mildly globally hypo with EF lower limits of normal to mildly reduced at 45% to 50%. Aortic valve is tricuspid. No evidence of stenosis by Doppler interrogation. Left atrium normal at 3.0 cm. Mitral valve shows no prolapse. Trace MR. Right-sided chambers grossly normal. Trace TR. TRANSINT:[id number] Voice Confirmation ID: [id number] DOCUMENT ID: [id number] ECHOCARDIOGRAM REPORT [id number] TIARRA PENALOZA,MAGY Lemus MD at 0924 CC: [id number] DICTATION DATE: 10/08/18 1016 ACOUSTICAL CARPENTER: 10/08/18 [address] [facility] [address] [place] [id number]
--- NOTE | 2018-10-13 10:02 | NUR ---
PT ATTEMPTING TO GET OOB AND IS NOT CONSOLABLE TO STAY IN BED. ASSISTED OOB TO CHAIR. MOTHER AT BS. PT IS CALM AND APPEARS HAPPY WITH UP TO CHAIR.
--- NOTE | 2018-10-13 10:49 | NUR ---
PATEL CATH DCD, PT INC OF BM X 2 THIS AM. BATH TO SATINDER AREA AND DIAPER PLACED. MOTHER AT BS.
--- NOTE | 2018-10-13 12:59 | NUR ---
DR GENAO HERE ON ROUNDS AND DR SANDERS HERE ON ROUNDS WELL. FAMILY AT BS. PT IN CHAIR. PT APPEARS VERY UPSET WITH PHYSICIANS AND NURSES ENTERING ROOM. PT IS CRYING OUT AND IS ROCKING BACK AND FORTH AND LOUDLY CRYING OUT INCOMPREHENSIVE SOUNDS.
--- NOTE | 2018-10-13 13:51 | NUR ---
DR AGUILAR HERE ON ROUNDS AND SPOKE TO PT AND FAMILY AT BS.
--- NOTE | 2018-10-13 13:54 | OP ---
PATIENT NAME: TIARRA PENALOZA MEDICAL RECORD: [id number] :69 LOCATION:[facility].CV[facility] ADMISSION DATE:10/06/18 SURGEON: RAJI LUTZ MD DATE OF OPERATION: 10/09/2018 SURGEON: Raji Lutz MD ANESTHESIA: General; Martin Oakley MD OPERATION PERFORMED: Insertion of dual chamber pacing system. PREOPERATIVE DIAGNOSES: Complete heart block, profound bradycardia. POSTOPERATIVE DIAGNOSES: Complete heart block, profound bradycardia. INDICATION FOR OPERATION: Bradycardia. FINDINGS OF THE OPERATION: The pulse generator was MedEnecsys, model #W1DR01, serial #[id number]. Atrial lead was Medtronic, model #4574-45, serial #[id number]. Ventricular lead was Medtronic, model #4074-52, serial number #[id number]. LEAD ANALYSIS: Atrial lead threshold is 0.375 volts, current threshold ____, impedance 475 ohms, P wave 3.3. Ventricular lead threshold 0.875 volts, impedance 1007, R wave 10.1. ESTIMATED BLOOD LOSS: Less than 5 cc. DESCRIPTION OF PROCEDURE: After informed consent, adequate preoperative medication, and evaluation, the patient was brought to the operating room and placed on the table in supine position. After induction of general anesthesia and application of appropriate monitoring devices, left chest and neck were prepped and draped in sterile field utilizing Betadine scrub, alcohol, and Betadine solution. Betadine-impregnated drape was also used. Lidocaine 1% was infiltrated in the left subclavicular space. Incision was made and dissection was carried down to the fascia. Hemostasis was maintained with electrocautery. A pacemaker pocket was formed. Subclavian vein was cannulated with the introducers. Leads were placed in the heart. The above electrophysiologic study was done and they were felt to be in good position. The leads were secured. The leads were then connected to pulse generator and pacemaker was placed in the pocket. Pacemaker was fired, captured and sensed appropriately. Pocket was irrigated. Instrument count and sponge count were correct times 2. Pocket was closed in layers utilizing 3-0 Vicryl on the subcutaneous tissue and 5-0 subcuticular Monocryl on the skin. Sterile dressings were applied. The patient tolerated the procedure well and was transferred to CV ICU in satisfactory condition. TRANSINT:[id number] Voice Confirmation ID: [id number] DOCUMENT ID: [id number] OPERATIVE REPORT [id number] TIARRA PENALOZA EDWARD MD at 1354 CC: [id number] DICTATION DATE: 10/09/18 1606 LEAF STRIPPER: 10/09/18 191 ADM IN [facility] [address] [id number]
--- NOTE | 2018-10-13 14:56 | NUR ---
ASSISTED PT BACK TO BED. PARENTS AT BS. VSS.
--- NOTE | 2018-10-13 18:48 | NUR ---
PT INC OF URINE. DIAPER CHANGED AND PT REPOSITIONED FOR COMFORT.
--- NOTE | 2018-10-13 19:30 | NUR ---
Received patient resting in bed with eyes open and father at bedside, assessment completed per flowsheet. Opens eyes spontaneously/inconsistent follows instructions. S1/S2 noted 100% V pacing with intermittent regular beats on telemetry. Breathing is shallow/unlabored on room air with O2 sat 93%, lung sounds clear bilateral upper and mid with diminished lower. L upper arm immobilized in sling, L upper chest incision/pacemaker site well approximated. Abdomen is round/soft with bowel sounds active x4, non-tender. All pulses palpable with cap refill < 3 sec, skin warm/dry. Unable to assess pain at this time, repositioned for comfort. No further needs at this time, see flowsheet for details. All VSS and will continue to monitor.
--- NOTE | 2018-10-13 21:00 | NUR ---
Patient laying in bed with father at bedside, discussed discharge plans with all questions answered to satsifaction. Patient diaper saturated, changed with father assistance. HS meds given with father assistance, no difficulties noted. All VSS and will continue to monitor.
--- NOTE | 2018-10-13 23:20 | NUR ---
Reassessment completed per flowsheet, no changes from previous assessment. L upper chest incision/pacemaker site well approximated, no bruising/bleeding noted. All pulses palpable with cap refill < 3 sec, skin warm/dry. Repositioned for comfort, no further needs at this time. See flowsheet for details, all VSS and will continue to monitor.
[2018-10-14] VITALS (10 sets, daily range): BP systolic 92–127; BP diastolic 42–75
--- NOTE | 2018-10-14 01:00 | NUR ---
Patient resting in bed with eyes closed and father at bedside, repositioned for comfort. No further needs at this time, all VSS and will continue to monitor.
--- NOTE | 2018-10-14 03:10 | NUR ---
Reassessment completed per flowsheet, no changes noted from previous assessment. L upper chest incsion/pacemaker well approximated, no bruising/bleeding noted. All pulses palpable with cap refill < 3 sec, skin warm/dry. Repositioned for comfort, no further needs at this time. See flowsheet for details, all VSS and will continue to monitor.
--- NOTE | 2018-10-14 05:00 | NUR ---
Patient laying in bed awake with father at bedside, no s/s of distress at this time. Repositioned for comfort, all VSS and will continue to monitor.
[2018-10-14 06:00] LABS: BASOPHILS 0.3 % (0-2); EOSINOPHILS 0.2 % (0-7); HEMATOCRIT 39.9 % (42.0-54.0); HEMOGLOBIN 13.9 g/dL (13.5-17.5); IMMATURE GRANULOCYTES 0.8 % (0-5); LYMPHOCYTES 11.2 % (15-50); MCH 33.7 pg (26.0-34.0); MCHC 34.8 g/dL (31.0-37.0); MCV 96.8 fL (80.0-100.0); MEAN PLATELET VOLUME 9.6 fL (7.4-10.4); MONOCYTES 6.6 % (2-11); NEUTROPHILS 80.9 % (40-80); RBC 4.12 10x6/uL (4.20-6.10); RDW 13.7 % (11.5-14.5)
[2018-10-14 06:02] LABS: PLATELET COUNT 224 10x3/uL (130-400); WBC 9.4 10x3/uL (4.8-10.8)
[2018-10-14 06:08] LABS: CALC OSMOLALITY 289 mosm/kg (275-300); CALCIUM 7.9 mg/dL (8.5-10.1); CARBON DIOXIDE 29.9 mmol/L (21.0-32.0); CHLORIDE - SERUM 111 mmol/L (98-107); CREATININE - SERUM 0.7 mg/dL (0.6-1.3); GLUCOSE 105 mg/dL (74-106); POTASSIUM - SERUM 3.5 mmol/L (3.5-5.1); SODIUM 146 mmol/L (136-145); UREA NITROGEN 11 mg/dL (7-18); eGFR NON AFRICAN AMERICAN > 90 mL/min (90-120)
--- NOTE | 2018-10-14 08:00 | NUR ---
SHIFT ASSESSMENT COMPLETED. INCONTINENT EPISODE OF URINE AND STOOL NOTED AT THIS TIME. CHG BATH GIVEN, PERICARE PROVIDED. COMPLETE LINEN CHANGE PROVIDED. BARRIER CREAM APPLIED TO PERIAREA. PT TOLERATED WELL. SEE FLOWSHEET FOR COMPLETE ASSESSMENT. SIDE RAILS UP X 2. BED LOW POSITION. FATHER AT BEDSIDE. WILL CONTINUE TO MONITOR.
--- NOTE | 2018-10-14 10:00 | NUR ---
Mother at bedside. Assisted pt with meal.
--- NOTE | 2018-10-14 13:27 | NUR ---
Pt resting comfortably. VSS. Will be discharged home. Case Management working on home health.
--- NOTE | 2018-10-14 14:52 | NUR ---
DISCHARGE APPOINTMENTS MADE BY EMORY NAVAS RN. HOME HEALTH ARRANGED VIA CASE MANAGMENT. PAPER WORK SIGNED BY THE MOTHER. ALL DC INSTRUCTIONS WENT OVER WITH THE FAMILY INCLUDING MEDS, WOUND CARE, S/SX TO REPORT. ALL BELONINGS ACCOUNTED FOR. PT INC OF BLADDER. PT CLEANED BY THE PARENTS PROPERLY. PT ASSISTED INTO THE WC AND INTO THE CAR. PT LEFT IN A STABLE CONDITION.
--- NOTE | 2018-10-14 15:43 | NUR ---
OT NOTE: PT COMPLETED HYGIENE TASK WITH SERENE Plasencia THANK YOU, VALENTIN SHELTON
--- NOTE | 2018-10-14 18:08 | MORECARE ---
CASE MANAGEMENT DISCHARGE SUMMARY PATIENT: TIARRA PENALOZA UNIT: [id number] ADM DATE: 10/06/18 AGE: 53 : 69 SEX: M ROOM/BED: D.[facility] AUTHOR: MICHDOC PHYSICIAN: REFERRING PHYSICIAN: HOLLIS RAGSDALE MD DATE OF SERVICE: 10/14/18 Discharge Plan Patient Name: TIARRA PENALOZA Facility: [facility]:[place] : 1965 Planned Disposition: Home Anticipated Discharge Date: Discharge Date: 10/14/2018 Expected LOS: Initial Reviewer: [email or web address] Initial Review Date: 10/09/2018 Generated: 10/14/18 7:07 pm Comments DCP- Discharge Planning Updated by [email or web address]: Jaci Metzger on 10/10/18 7:[address] Patient Name: TIARRA PENALOZA Admission Status: ER Accout number: [id number] Admission Date: 10-06-2018 : 1965 Admission Diagnosis:BRADYCARDIA, UNSPECIFIED Attending: HOLLIS RAGSDALE Current LOS: 4 Anticipated DC Date: Planned Disposition: Home Primary Insurance: MEDICARE A & B Discharge Planning Comments: CM met with patient and mother at bedside after explaining CM role and obtaining verbal consent. Patient lives at home with his parents and plans to return there upon discharge. Patient has Down's and Alzheimer's he is non-verbal. His mother feels this would be a safe discharge. CM discussed availability / needs of home health and medical equipment. Family denies any discharge needs at this time. CM will continue to follow and assist as needed with discharge planning / needs. Physical Therapy Manager: Jaci Metzger DCPIA - Discharge Planning Initial Assessment Updated by [email or web address]: Jaci Metzger on 10/10/18 8:07 pm * Is the patient Alert and Oriented? No * How many steps to enter\exit or inside your home? * PCP SHAHID PENALOZA * Pharmacy [facility] * Preadmission Environment Home with Family * ADLs Total Dependent * Other Equipment W/C, HOSPITAL BED, STEP IN TUB, * List name and contact numbers for known caregivers / representatives who currently or will assist patient after discharge: BERNARDO PENALOZA - FATHER- [phone] * Verbal permission to speak to the caregivers and representatives has been obtained from the patient. N/A * Community resources currently utilized None * Additional services required to return to the preadmission environment? No * Can the patient safely return to the preadmission environment? Yes * Has this patient been hospitalized within the prior 30 days at any hospital? No External Providers External Provider: [facility] Next Contact Date: Service Request Date: Service Type: Resolution: Reviewer: Comments: Last DP export: 10/10/18 7:14 p Patient Name: TIARRA PENALOZA Page [id number] at 1808 All edits/amendments must be made on the electronic document DICTATION DATE: 10/14/181806 MISSIONARY COORDINATOR: ROD 10/14/181806 RPT#: [id number] NE DATE:10/14/18 STATUS: DIS IN [facility] [address] [place] [address] END OF REPORT
--- NOTE | 2018-10-14 18:41 | MORECARE ---
CASE MANAGEMENT DISCHARGE SUMMARY PATIENT: TIARRA LAURA UNIT: [id number] ADM DATE: 10/06/18 AGE: 53 : 69 SEX: M ROOM/BED: D.08 AUTHOR: MICH,DOC PHYSICIAN: REFERRING PHYSICIAN: HOLLIS RAGSDALE MD DATE OF SERVICE: 10/14/18 Discharge Plan Patient Name: TIARRA LAURA Facility: [facility]:[place] : 1965 Planned Disposition: Home Anticipated Discharge Date: Discharge Date: 10/14/2018 Expected LOS: Initial Reviewer: [email or web address] Initial Review Date: 10/09/2018 Generated: 10/14/18 7:40 pm Comments DCP- Discharge Planning Updated by [email or web address]: Jaci Metzger on 10/14/18 5:[address] CM called Nila Laura [facility] office and received verbal consent to follow patient for Home Health. CM notified [facility] in [place] and they stated they would see patient on Sunday. CM faxed records to [facility]. D/C IMM signed 10/14/18 @ 1126 DCP- Discharge Planning Updated by [email or web address]: Jaci Metzger on 10/10/18 7:[address] Patient Name: TIARRA LAURA Admission Status: ER Accout number: [id number] Admission Date: 10-06-2018 : 1965 Admission Diagnosis:BRADYCARDIA, UNSPECIFIED Attending: HOLLIS RAGSDALE Current LOS: 4 Anticipated DC Date: Planned Disposition: Home Primary Insurance: MEDICARE A & B Discharge Planning Comments: CM met with patient and mother at bedside after explaining CM role and obtaining verbal consent. Patient lives at home with his parents and plans to return there upon discharge. Patient has Down's and Alzheimer's he is non-verbal. His mother feels this would be a safe discharge. CM discussed availability / needs of home health and medical equipment. Family denies any discharge needs at this time. CM will continue to follow and assist as needed with discharge planning / needs. Unit Clerk: Jaci Metzger DCPIA - Discharge Planning Initial Assessment Updated by [email or web address]: Jaci Metzger on 10/10/18 8:07 pm * Is the patient Alert and Oriented? No * How many steps to enter\exit or inside your home? * PCP NILA LAURA * Pharmacy [facility] * Preadmission Environment Home with Family * ADLs Total Dependent * Other Equipment W/C, HOSPITAL BED, STEP IN TUB, * List name and contact numbers for known caregivers / representatives who currently or will assist patient after discharge: BERNARDO LAURA - FATHER- [phone] * Verbal permission to speak to the caregivers and representatives has been obtained from the patient. N/A * Community resources currently utilized None * Additional services required to return to the preadmission environment? No * Can the patient safely return to the preadmission environment? Yes * Has this patient been hospitalized within the prior 30 days at any hospital? No Coverage Notice Reviewer: [id number] Mer Metzger Notice Issued Date-Time: 10/14/2018 11:26 Notice Type: IM Discharge Notice Notice Delivered To: Family Member Relationship to Patient: Mother School Year Nanny Name: Delivery Method: HAND - Hand Delivered Raquel Days: Prior Verbal Notification: Recipient Understood Notice: Yes Recipient Signature: Yes Med Rec Note Co-signed by Attending: Coverage Notice Comment: Last DP export: 10/14/18 5:08 p Patient Name: TIARRA LAURA Page [phone] at 1841 All edits/amendments must be made on the electronic document DICTATION DATE: 10/14/181839 SPRING INSPECTOR: ROD 10/14/181839 RPT#: [id number] DC DATE:10/14/18 STATUS: DIS IN [facility] [address] [place] [address] END OF REPORT
--- NOTE | 2018-10-14 18:59 | MORECARE ---
CASE MANAGEMENT DISCHARGE SUMMARY PATIENT: TIARRA LAURA UNIT: [id number] ADM DATE: 10/06/18 AGE: 53 : 69 SEX: M ROOM/BED: D.08 AUTHOR: MICH,DOC PHYSICIAN: REFERRING PHYSICIAN: HOLLIS RAGSDALE MD DATE OF SERVICE: 10/14/18 Discharge Plan Patient Name: TIARRA LAURA Facility: [facility]:[place] : 1965 Planned Disposition: Home Anticipated Discharge Date: Discharge Date: 10/14/2018 Expected LOS: Initial Reviewer: [email or web address] Initial Review Date: 10/09/2018 Generated: 10/14/18 7:59 pm Comments DCP- Discharge Planning Updated by [email or web address]: Jaci Metzger on 10/14/18 5:[address] CM called Nila Laura [facility] office and received verbal consent to follow patient for Home Health. CM notified [facility] in [place] and they stated they would see patient on Sunday. CM faxed records to [facility]. D/C IMM signed 10/14/18 @ 1126 DCP- Discharge Planning Updated by [email or web address]: Jaci Metzger on 10/10/18 7:[address] Patient Name: TIARRA LAURA Admission Status: ER Accout number: [id number] Admission Date: 10-06-2018 : 1965 Admission Diagnosis:BRADYCARDIA, UNSPECIFIED Attending: HOLLIS RAGSDALE Current LOS: 4 Anticipated DC Date: Planned Disposition: Home Primary Insurance: MEDICARE A & B Discharge Planning Comments: CM met with patient and mother at bedside after explaining CM role and obtaining verbal consent. Patient lives at home with his parents and plans to return there upon discharge. Patient has Down's and Alzheimer's he is non-verbal. His mother feels this would be a safe discharge. CM discussed availability / needs of home health and medical equipment. Family denies any discharge needs at this time. CM will continue to follow and assist as needed with discharge planning / needs. Thermal Cutter Hand: Jaci Metzger DCPIA - Discharge Planning Initial Assessment Updated by [id number]: Jaci Metzger on 10/10/18 8:07 pm * Is the patient Alert and Oriented? No * How many steps to enter\exit or inside your home? * PCP NILA LAURA * Pharmacy [facility] * Preadmission Environment Home with Family * ADLs Total Dependent * Other Equipment W/C, HOSPITAL BED, STEP IN TUB, * List name and contact numbers for known caregivers / representatives who currently or will assist patient after discharge: BERNARDO LAURA - FATHER- [phone] * Verbal permission to speak to the caregivers and representatives has been obtained from the patient. N/A * Community resources currently utilized None * Additional services required to return to the preadmission environment? No * Can the patient safely return to the preadmission environment? Yes * Has this patient been hospitalized within the prior 30 days at any hospital? No Coverage Notice Reviewer: [id number] Mer eMtzger Notice Issued Date-Time: 10/14/2018 11:26 Notice Type: IM Discharge Notice Notice Delivered To: Family Member Relationship to Patient: Mother Mate Relief Name: Delivery Method: HAND - Hand Delivered Raquel Days: Prior Verbal Notification: Recipient Understood Notice: Yes Recipient Signature: Yes Med Rec Note Co-signed by Attending: Coverage Notice Comment: Last DP export: 10/14/18 5:40 p Patient Name: TIARRA LAURA Page [phone] at 1859 All edits/amendments must be made on the electronic document DICTATION DATE: 10/14/181857 ASPHALT BLENDER: ROD 10/14/181857 RPT#: [id number] DC DATE:10/14/18 STATUS: DIS IN [facility] [address] [place] [address] END OF REPORT
== END 2018-10-14 14:59 | disposition home health service (06) | DRG 242 ==
LOC: D.ER 14:48 → D.CVICU 15:57
PROVIDERS: Emergency Medicine; Internal Medicine Cardiovascular Disease; Internal Medicine Nephrology; Internal Medicine Pulmonary Disease; Thoracic Surgery (Cardiothoracic Vascular Surgery); ADMIT Family Medicine; ATTEND Family Medicine
PROC: 02H63JZ Insertion of Pacemaker Lead into Right Atrium, Percutaneous Approach (ICD-10-PCS; 2018-10-09)
PROC: 02HK3JZ Insertion of Pacemaker Lead into Right Ventricle, Percutaneous Approach (ICD-10-PCS; 2018-10-09)
PROC: 0JH606Z Insertion of Pacemaker, Dual Chamber into Chest Subcutaneous Tissue and Fascia, Open Approach (ICD-10-PCS; principal; 2018-10-09 15:00)
DX: I49.5 Sick sinus syndrome (principal); J18.1 Lobar pneumonia, unspecified organism; I44.2 Atrioventricular block, complete; Q90.9 Down syndrome, unspecified; R55 Syncope and collapse; F41.9 Anxiety disorder, unspecified; R13.10 Dysphagia, unspecified; G40.909 Epilepsy, unspecified, not intractable, without status epilepticus; I73.9 Peripheral vascular disease, unspecified; G30.9 Alzheimer's disease, unspecified; F02.80 Dementia in other diseases classified elsewhere, unspecified severity, without behavioral disturbance, psychotic disturbance, mood disturbance, and anxiety; R31.0 Gross hematuria